=== PATIENT | female | born 1995 ===

== ENCOUNTER 2019-07-07 08:08 | Inpatient (IN) | payer OTHER ==
[2019-07-07] MEDS ORDERED: LACTATED RINGERS 2,000 ML ONE (08:46)
[2019-07-07] MEDS: LACTATED RINGERS 1,000 ML IV SCH ×2 (09:00→15:44)
[2019-07-07] MEDS ORDERED: BUTORPHANOL 2 MG/1 ML INJ IV PRN (09:56)
[2019-07-07] MEDS ORDERED: TERBUTALINE 1 MG/1 ML INJ IVP PRN (09:56)
[2019-07-07] MEDS ORDERED: TERBUTALINE 1 MG/1 ML INJ SUB-Q PRN (09:56)
[2019-07-07] MEDS ORDERED: OXYTOCIN 20 UNIT/1000ML DRIP 20 UNITS/1,000 ML BAG IV SCH (10:00)
[2019-07-07] MEDS ORDERED: OXYTOCIN DRIP 30 UNITS/500 ML BAG IV SCH (10:00)
[2019-07-07 10:02] LABS: Basophils % (Auto) 0.3 % (0.0-1.8); Eosinophils # (Auto) 0.1 K/mm3 (0.0-0.4); Eosinophils % (Auto) 1.5 % (0.0-4.3); Hematocrit 35.7 % (30.3-42.9); Hemoglobin 12.2 gm/dl (10.1-14.3); Lymphocytes # (Auto) 2.7 K/mm3 (1.2-5.4); Lymphocytes % (Auto) 31.1 % (13.4-35.0); Mean Corpuscular HGB Conc 34 % (30-34); Mean Corpuscular Volume 85 fl (79-97); Monocytes # (Auto) 0.7 K/mm3 (0.0-0.8); Monocytes % (Auto) 7.6 % (0.0-7.3); Platelet Count 204 K/mm3 (140-440); Red Blood Count 4.18 M/mm3 (3.65-5.03); Red Cell Distribution Width 14.8 % (13.2-15.2)
--- NOTE | 2019-07-07 10:08 | History and Physical Report ---
History of Present Illness Date of examination: 07/07/19 Date of admission: 07/07/2019 Chief complaint: IOL secondary to post-date History of present illness: 24 yo, @ 41.1 wks, initiated care with [facility] at 13.5 wks gestation. Her has uncomplicated with the exception of an UTI. She represents to [facility] for IOL secondary to post-date . Reports +FM. Denies any VB or LOF. Labs: O+, antibody negative; PAP normal; Rubella immune; VDRL negative; urine culture + staph; HBsAg negative; HIV negative; GC/Chlamydia negative; MSAFP/Multiple Markers negative; 1 hr gtt - 118; GBS negative. Past History Past Medical History: no pertinent history Past Surgical History: no surgical history Family/Genetic History: diabetes (parents and GF) Social history: , lives with family, full code. denies: smoking, alcohol abuse, prescription drug abuse, IV drug use - Obstetrical History Expected Date of Delivery: 06/29/19 Actual Gestation: 41 Week(s) 1 Day(s) : 4 Para: 2 Hx # Term Pregnancies: 2 Number of Pregnancies: 0 Spontaneous Abortions: 1 Induced : 0 Number of Living Children: 2 #1 Gender: Female year: 2,[birth year] Birthweight: 2.268 kg Method of Delivery: Vaginal Gestational age at delivery: 40 Complications: none #2 Infant Gender: Male year: 2,[birth year] Birthweight: 4.026 kg Method of Delivery: Vaginal Gestational age at delivery: 40 Complications: none #3 year: 2,019 (SAB) Gestational age at delivery: 6 Medications and Allergies Allergies Allergy/AdvReac Type Severity Reaction Status Date / Time No Known Allergies Allergy Unverified 07/07/19 09:17 Active Meds: Active Medications Butorphanol Tartrate (Stadol) 2 mg IV Q2H PRN PRN Reason: Pain , Severe (7-10) Ephedrine Sulfate (Ephedrine Sulfate) 10 mg IV Q2M PRN PRN Reason: Hypotension Fentanyl (Sublimaze) 100 mcg IV Q2H PRN PRN Reason: Pain,Severe (7-10) LABOR PAIN Oxytocin/Sodium Chloride (Pitocin/Ns 20 Unit/1000ml Drip) 20 units in 1,000 mls @ 125 mls/hr IV DIRECT FLAKITO Oxytocin/Sodium Chloride (Pitocin/Ns 30 Unit/500ml) 30 units in 500 mls @ 1 mls/hr IV TITR FLAKITO; Protocol Oxytocin/Sodium Chloride (Pitocin/Ns 30 Unit/500ml) 30 units in 500 mls @ 2 mls/hr IV TITR FLAKITO; Protocol Lactated Ringer's (Lactated Ringers) 1,000 mls @ 125 mls/hr IV DIRECT FLAKITO Lidocaine (Xylocaine 2%) 20 ml INFILTRATI ONCE ONE Stop: 07/07/19 09:57 Mineral Oil (Mineral Oil) 30 ml PO QHS PRN PRN Reason: Constipation Terbutaline Sulfate (Brethine) 0.25 mg SUB-Q ONCE PRN PRN Reason: Hyperstimulation/Hypertonicity Terbutaline Sulfate (Brethine) 0.25 mg IVP ONCE PRN PRN Reason: Hyperstimulation/Hypertonicity Review of Systems All systems: negative - Vital Signs Vital signs: Vital Signs Pulse BP 100 H 113/68 07/07/19 08:40 07/07/19 08:40 Temp Pulse Resp BP Pulse Ox 100 H 113/68 07/07/19 08:40 07/07/19 08:40 - Physical Exam Breasts: Positive: normal Cardiovascular: Regular rate Lungs: Positive: Normal air movement Abdomen: Positive: other (gravid) Genitourinary (Female): Positive: normal external genitalia, normal perenium Vagina: Positive: normal moisture Uterus: Positive: enlarged (S=D) Extremities: Positive: normal, edema Deep Tendon Reflex Grade: Normal +2 - Obstetrical FHR: category 1 Uterine Contraction Monitor Mode: External Cervical Dilatation: 1.5 (Vertex) Cervical Effacement Percentage: 60 station: -3 Uterine Contraction Pattern: Absent Uterine Tone Measurement Phase: Resting Results Result Diagrams: 07/07/19 08:52 Abnormal lab results 07/07/19 Range/Units 08:52 [place] % (Auto) 7.6 H (0.0-7.3) % All other labs normal. Assessment and Plan - Patient Problems (1) Encounter for induction of labor Current Visit: Yes Status: Acute Plan to address problem: Admit to L & D Pitocin induction as tolerated Pain meds as desired Anticipate
[2019-07-07] MEDS ORDERED: ePHEDrine SULFATE 50 MG/1 ML INJ IV PRN (10:30)
[2019-07-07] MEDS ORDERED: fentaNYL 100 MCG/2 ML INJ IV PRN (10:30)
[2019-07-07] MEDS: OXYTOCIN DRIP 30 UNITS/500 ML BAG IV SCH ×7 (10:47→15:04)
[2019-07-07] MEDS ORDERED: LIDOCAINE (2%) 20 MG/1 ML VIAL 20 ML MDV INFILTRATI ONE (11:00)
[2019-07-07 11:21] LABS: Hematocrit 33.8 % (30.3-42.9); Hemoglobin 11.9 gm/dl (10.1-14.3); Mean Corpuscular HGB Conc 35 % (30-34); Mean Corpuscular Volume 85 fl (79-97); Platelet Count 197 K/mm3 (140-440); Red Cell Distribution Width 14.7 % (13.2-15.2)
--- NOTE | 2019-07-07 16:46 | Progress Note ---
Assessment and Plan - Patient Problems (1) Encounter for induction of labor Current Visit: Yes Status: Acute Plan to address problem: Continue pitocin titration as tolerated SROM at 1530 Pain meds as desired Anticipate Subjective - Subjective Date of service: 07/07/19 Principal diagnosis: IOL Interval history: 24 yo, @ 41.1 wks, initiated care with [facility] at 13.5 wks gestation. Her has uncomplicated with the exception of an UTI. She represents to [facility] for IOL secondary to post-date . Reports +FM. Denies any VB or LOF. Labs: O+, antibody negative; PAP normal; Rubella immune; VDRL negative; urine culture + staph; HBsAg negative; HIV negative; GC/Chlamydia negative; MSAFP/Multiple Markers negative; 1 hr gtt - 118; GBS negative. Patient reports: loss of fluid (SROM at 1530), movement normal, contractions ("a little painful"), no vaginal bleeding Objective - Vital Signs Vital Signs: Vital Signs - 12hr 07/07/19 07/07/19 07/07/19 08:40 10:14 10:20 Temperature 98.6 F Pulse Rate 100 H 97 H 97 H Respiratory 15 Rate Blood Pressure 113/68 117/62 Blood Pressure 117/62 [Right] 07/07/19 07/07/19 15:41 15:42 Temperature 98.5 F Pulse Rate 100 H 100 H Respiratory 16 Rate Blood Pressure 110/59 Blood Pressure 110/59 [Right] - Exam Breasts: deferred Cardiovascular: Regular rate Lungs: Normal air movement FHR: category 1 Uterine Contraction Monitor Mode: External Cervical Dilatation: 2 Cervical Effacement Percentage: 70 station: -3 Uterine Contraction Frequency (min): 2 Uterine Contraction Pattern: Regular Uterine Tone Measurement Phase: Resting Uterine Contraction Intensity: Mild Extremities: normal Deep Tendon Reflex Grade: Normal +2 - Labs Labs: Abnormal Labs 07/07/19 07/07/19 08:52 10:49 MCHC 35 H [place] % (Auto) 7.6 H Laboratory Results - last 24 hr 07/07/19 07/07/19 07/07/19 08:48 08:52 10:49 WBC 8.7 9.4 RBC 4.18 4.00 Hgb 12.2 11.9 Hct 35.7 33.8 MCV 85 85 MCH 29 30 MCHC 34 35 H RDW 14.8 14.7 Plt Count 204 197 Lymph % (Auto) 31.1 [place] % (Auto) 7.6 H Eos % (Auto) 1.5 Baso % (Auto) 0.3 Lymph # 2.7 [place] # 0.7 Eos # 0.1 Baso # 0.0 Seg Neutrophils % 59.5 Seg Neutrophils # 5.2 Blood Type O POSITIVE Antibody Screen Negative
--- NOTE | 2019-07-07 20:45 | Progress Note ---
Assessment and Plan - Patient Problems (1) Encounter for induction of labor Current Visit: Yes Status: Acute Plan to address problem: Continue pitocin titration as tolerated SROM at 1530, fluids remain clear Pain meds as desired Anticipate Subjective - Subjective Date of service: 07/07/19 Principal diagnosis: IOL Interval history: 24 yo, @ 41.1 wks, initiated care with [facility] at 13.5 wks gestation. Her has uncomplicated with the exception of an UTI. She represents to [facility] for IOL secondary to post-date . Reports +FM. Denies any VB or LOF. Labs: O+, antibody negative; PAP normal; Rubella immune; VDRL negative; urine culture + staph; HBsAg negative; HIV negative; GC/Chlamydia negative; MSAFP/Multiple Markers negative; 1 hr gtt - 118; GBS negative. Patient reports: loss of fluid (SROM at 1530), movement normal, contractions ("a little painful"), no new complaints, no vaginal bleeding Objective - Vital Signs Vital Signs: Vital Signs - 12hr 07/07/19 07/07/19 07/07/19 10:14 10:20 15:41 Temperature 98.6 F 98.5 F Pulse Rate 97 H 97 H 100 H Respiratory 15 16 Rate Blood Pressure 117/62 Blood Pressure 117/62 110/59 [Right] O2 Sat by Pulse Oximetry 07/07/19 07/07/19 07/07/19 15:42 18:30 19:20 Temperature 98 F 98.2 F Pulse Rate 100 H 100 H Respiratory 18 Rate Blood Pressure 110/59 Blood Pressure 110/50 [Right] O2 Sat by Pulse 100 Oximetry 07/07/19 20:28 Temperature Pulse Rate 86 Respiratory Rate Blood Pressure 99/56 Blood Pressure [Right] O2 Sat by Pulse Oximetry - Exam Breasts: deferred Cardiovascular: Regular rate Lungs: Normal air movement Uterus: Present: other (S=D) FHR: category 1 Uterine Contraction Monitor Mode: External Cervical Dilatation: 5 (vertex) Cervical Effacement Percentage: 80 station: -2 Uterine Contraction Frequency (min): 2-3 Uterine Contraction Pattern: Irregular Uterine Tone Measurement Phase: Resting Uterine Contraction Intensity: Moderate - Labs Labs: Abnormal Labs 07/07/19 07/07/19 08:52 10:49 MCHC 35 H [place] % (Auto) 7.6 H Laboratory Results - last 24 hr 07/07/19 07/07/19 07/07/19 08:48 08:52 10:49 WBC 8.7 9.4 RBC 4.18 4.00 Hgb 12.2 11.9 Hct 35.7 33.8 MCV 85 85 MCH 29 30 MCHC 34 35 H RDW 14.8 14.7 Plt Count 204 197 Lymph % (Auto) 31.1 [place] % (Auto) 7.6 H Eos % (Auto) 1.5 Baso % (Auto) 0.3 Lymph # 2.7 [place] # 0.7 Eos # 0.1 Baso # 0.0 Seg Neutrophils % 59.5 Seg Neutrophils # 5.2 Blood Type O POSITIVE Antibody Screen Negative
[2019-07-07] MEDS ORDERED: MINERAL OIL 30 ML ORAL LIQD PO PRN (22:00)
[2019-07-07] MEDS ORDERED: ONDANSETRON 4 MG/2 ML INJ IV PRN (22:47)
[2019-07-07] MEDS ORDERED: diphenhydrAMINE 25 MG CAP PO PRN (22:47)
[2019-07-07] MEDS ORDERED: oxyCODONE /ACETAMINOPHEN 5-325MG TAB PO PRN (22:47)
[2019-07-07] MEDS ORDERED: PROMETHAZINE 25 MG TAB PO PRN (22:47)
[2019-07-07] MEDS ORDERED: MAGNESIUM HYDROXIDE (MOM) ORAL LIQD UDC PO PRN (22:47)
[2019-07-07] MEDS ORDERED: LANOLIN/ZINC/DIMETHICONE (LANSINOH) 7 GM TP PRN (22:47)
[2019-07-07] MEDS ORDERED: WITCH HAZEL/ GLYCERIN PAD TP PRN (22:47)
--- NOTE | 2019-07-07 23:01 | Procedure Note ---
OB Delivery Note - Delivery Date of Delivery: 07/07/19 (0860) Surgeon: LEA CHRIS (CNM) Estimated blood loss: <100cc - Vaginal Delivery presentation: vertex Delivery position: OA (VIVIENNE) Intrapartum events: none Delivery induction: oxytocin Delivery augmentation: rupture of membranes (SROM @ 1530), pitocin Delivery monitor: external FHT, external uterine Route of delivery: Delivery placenta: spontaneous (patel) Delivery cord: nuchal cord (x 1, reduced at perineum), 3 umbilical vessels Episiotomy: none Delivery laceration: none Anesthesia: none Delivery comments: of viable, quiet, floppy baby, placed directly on maternal abdomen. Cord double clamped immediately by myself and passed to awaiting MATILDE team nurse. Placed in warmer, dried with warm blanket and manually stimulated, began to cry. Cord blood collected. Placenta spontaneously delivered, patel, disposed per hospital policy. Uterus firm @ U-1, hemostasis maintained. Perineum intact. Mother and baby, safe, stable and bonding well. Left in care of RN. - A at 1 minute: 8 at 5 minutes: 9 Gender: Female (Wt: 4068 gms (8lbs 15.4ozs) 19.5 inches)
[2019-07-08] MEDS: FERROUS SULFATE 325 MG TAB PO SCH (09:28)
[2019-07-08] MEDS: PRENATAL VIT27-FE FUMARATE-FOLIC ACID VIT TAB PO SCH (09:28)
[2019-07-08 09:29] LABS: Hematocrit 27.7 % (30.3-42.9); Hemoglobin 9.8 gm/dl (10.1-14.3)
[2019-07-08] MEDS: IBUPROFEN 600 MG TAB PO SCH ×3 (09:29→20:58)
--- NOTE | 2019-07-08 12:11 | Progress Note ---
Assessment and Plan A: PP Day #1 Asymptomatic Anemia P: Follow Routine Orders Continue FeSO4 as ordered D/C Home in the AM RTO in 6 Weeks Subjective - Subjective Date of service: 07/08/19 Principal diagnosis: IOL Patient reports: appetite normal, voiding normally, pain well controlled, flatus, ambulating normally : doing well, bottle feeding Objective - Vital Signs Latest vital signs: Vital Signs Temp Pulse Resp BP BP Pulse Ox 07/08/19 09:15 98.0 F 91 H 18 118/58 97 07/08/19 04:20 98.2 F 106 H 20 114/55 95 07/08/19 00:33 98.6 F 90 18 106/55 98 07/08/19 00:29 18 07/07/19 23:34 101 H 142/90 07/07/19 23:19 103 H 102/50 07/07/19 23:04 85 106/53 07/07/19 22:49 92 H 105/51 07/07/19 22:34 101 H 113/54 07/07/19 22:28 100 H 123/63 07/07/19 21:59 83 118/92 07/07/19 21:38 98.4 F 98 H 18 108/60 100 07/07/19 21:36 20 07/07/19 21:29 98 H 108/60 07/07/19 20:58 96 H 127/75 07/07/19 20:28 86 99/56 07/07/19 19:20 98.2 F 100 H 18 110/50 100 07/07/19 18:30 98 F 07/07/19 15:42 100 H 110/59 07/07/19 15:41 98.5 F 100 H 16 110/59 Intake and Output 07/07/19 07/08/19 07/08/19 22:59 06:59 14:59 Intake Total 848.067 240 120 Output Total 600 Balance 848.067 -360 120 Intake: IV 848.067 Lactated Ringers 1,000 ml 841.667 @ 125 mls/hr IV DIRECT FLAKITO Rx#:[id number] PITOCin/NS 30 UNIT/500ML 6.4 30 units In 500 ml @ 2 mls/hr IV TITR FLAKITO Rx#: [id number] Oral 240 120 Output: Urine 600 Void 600 Other: Total, Intake Amount 240 120 Total, Output Amount 600 # Voids Void 2 Estimated Blood Loss 100 - Exam Breasts: Present: normal Cardiovascular: Present: Regular rate Lungs: Present: Clear to auscultation, Normal air movement Abdomen: Present: normal appearance, soft, normal bowel sounds Uterus: Present: normal, firm, fundal height above umbilicus Extremities: Present: normal - Labs Labs: Abnormal lab results 07/08/19 Range/Units 09:17 Hgb 9.8 L (10.1-14.3) gm/dl Hct 27.7 L D (30.3-42.9) %
--- NOTE | 2019-07-08 12:12 | Discharge Summary ---
Providers - Providers Date of Admission: 07/07/19 08:09 Date of discharge: 07/09/19 Attending physician: AMELIA DENNEY MD Primary care physician: AMELIA DENNEY MD Hospitalization Reason for admission: active labor Delivery: Episiotomy: none Laceration: none Other procedures: none complications: none Discharge diagnosis: IUP at term delivered baby: female Condition at discharge: Good Disposition: DC-01 TO HOME OR SELFCARE Plan - Provider Discharge Summary Activity: routine, no sex for 6 weeks, no heavy lifting 4 weeks, no strenuous exercise Diet: routine Instructions: routine Additional instructions: [] Smoking cessation referral if applicable(refer to patient education folder for contact #) [] Refer to [facility]'s [facility] Booklet Call your doctor immediately for: * Fever > 100.5 * Heavy vaginal bleeding ( >1 pad per hour) * Severe persistent headache * Shortness of breath * Reddened, hot, painful area to leg or breast * Drainage or odor from incision. * Keep incision clean and dry at all times and follow doctor's instructions regarding bathing/showering - Follow up plan Follow up: AMELIA DENNEY MD [Primary Care Provider] - 6 Weeks
[2019-07-09] MEDS: FERROUS SULFATE 325 MG TAB PO SCH (10:41)
[2019-07-09] MEDS: PRENATAL VIT27-FE FUMARATE-FOLIC ACID VIT TAB PO SCH (10:42)
[2019-07-09 17:40] VITALS: BP 106/61
[2019-07-09] MEDS: IBUPROFEN 600 MG TAB PO SCH (20:37)
== END 2019-07-09 23:55 | disposition home or self-care (01) | DRG 807 ==
LOC: TRG 08:08 → LD 08:09 → TRG 09:56 → OB 07-08 00:14
PROVIDERS: ADMIT Obstetrics & Gynecology; ATTEND Obstetrics & Gynecology
PROC: 10E0XZZ Delivery of Products of Conception, External Approach (ICD-10-PCS; principal; 2019-07-07)
DX: O69.81X0 Labor and delivery complicated by cord around neck, without compression, not applicable or unspecified (principal); Z37.0 Single live birth; O48.0 Post-term pregnancy; Z3A.41 41 weeks gestation of pregnancy; O90.81 Anemia of the puerperium; D64.9 Anemia, unspecified
CPT/HCPCS: 36415; 59025; 85014; 85018; 85025; 85027; 86850; 86900; 86901; 96360; 96361; 96374; 96376; G0378; J0595; J2590; J3010; J7120